=== PATIENT | female | born 1970 | race Caucasian/White ===

== ENCOUNTER 2016-09-25 17:34 | Observation (INO) | payer OTHER ==
[~2016-09-25] VITALS: Ht 162.6 cm; Wt 77.0 kg
[~2016-09-25 17:34] MED LIST: ADVIL,NUPRIN,M200 MG PO; ANTIVERT25 MG PO; BENTYL20 MG PO; CIPRO500 MG PO; CITRATE OF MAG296 ML PO; FLEXERIL10 MG PO; KEFLEX500 MG PO; MOBIC7.5 MG PO; NORCO 5/3251 TABLET PO; PHENERGAN25 MG PR; PRILOSEC20 MG PO; PROMETHAZINE HC25 M1 PO; REGLAN10 MG PO; ZANTAC300 MG PO
[2016-09-25 18:34] LABS: HEMATOCRIT 43.7 % (36.0-46.0); MCH 33.3 PG (29.0-34.0); MCHC 35.5 G/DL (30.0-36.0); MCV 93.8 FL (83-99); MEAN PLAT.VOLUME 11.3 uM^3 (9.5-12.4); PLATELET COUNT 193 K/uL (156-360); RBC DIS.WIDTH-CV 12.2 % (11.8-14.6); RED BLOOD COUNT 4.66 M/uL (3.80-5.20); WHITE BLOOD COUNT 11.7 K/uL (4.1-10.2)
[2016-09-25 18:40] LABS: EOSINOPHIL (%) 0 % (0-5); IMMATURE GRANULOCYTE (%) 0.3 % (0.0-0.7); LYMPHOCYTE COUNT 0.8 K/uL (1.0-2.8); MONOCYTE (%) 4.4 % (3-12); MONOCYTE COUNT 0.5 K/uL (0-0.8); NEUTROPHIL (%) 88.7 % (45-76); NEUTROPHIL COUNT 10.4 K/uL (1.8-6.4)
[2016-09-25 18:49] LABS: TROP-I INTERPRETATION NEGATIVE; TROPONIN-I < 0.01 ng/mL (0.0-0.30)
[2016-09-25 18:50] LABS: CHLORIDE 108 mEq/L (99-109); POTASSIUM 3.6 mEq/L (3.7-5.4); SODIUM 139 mEq/L (136-147)
[2016-09-25 18:52] LABS: GLUCOSE 142 mg/dL (70-99)
[2016-09-25 18:53] LABS: ANION GAP 12 MEQ/L (2-14)
[2016-09-25 18:54] LABS: TOTAL BILIRUBIN 0.9 mg/dL (0.0-1.0)
[2016-09-25 18:56] LABS: ALKALINE PHOSPHATASE 96 IU/L (3-129); GFR ESTIMATE (CALCULATED) > 59 mL/min/
[2016-09-25 18:57] LABS: UREA NITROGEN (BUN) 17 mg/dL (9-23)
[2016-09-25 18:59] LABS: LIPASE 20 U/L (1.0-51.0)
[2016-09-26 01:30] VITALS: BP 136/62
[2016-09-26 04:53] VITALS: BP 132/71
[2016-09-26 05:20] LABS: ADD MIUA? YES; BILIRUBIN NEGATIVE; BLOOD TRACE; COLOR YELLOW ((YELLOW)); GLUCOSE (STRIP) 100; KETONES 15; LEUKOCYTES NEGATIVE; NITRITE NEGATIVE; PROTEIN (STRIP) TRACE; SPECIFIC GRAVITY 1.031 (1.000-1.030)
[2016-09-26 05:35] LABS: RED BLOOD CELLS 0-5 /HPF (0-5); WHITE BLOOD CELLS 0-5 /HPF (0-5)
[2016-09-26 05:36] LABS: BACTERIA 2+ /HPF; CASTS NONE SEEN /LPF; CRYSTALS NONE SEEN; EPITHELIAL CELLS 2+ /HPF; MUCUS NONE SEEN /LPF
[2016-09-26 06:53] LABS: HEMATOCRIT 40.9 % (36.0-46.0); MCH 32.9 PG (29.0-34.0); MCHC 34.7 G/DL (30.0-36.0); MCV 94.7 FL (83-99); MEAN PLAT.VOLUME 11.2 uM^3 (9.5-12.4); PLATELET COUNT 169 K/uL (156-360); RBC DIS.WIDTH-CV 12.3 % (11.8-14.6); RBC DIS.WIDTH-SD 42.4 % (39-53); RED BLOOD COUNT 4.32 M/uL (3.80-5.20); WHITE BLOOD COUNT 7.2 K/uL (4.1-10.2)
[2016-09-26 07:05] LABS: ALKALINE PHOSPHATASE 75 IU/L (3-129); ANION GAP 9 MEQ/L (2-14); CHLORIDE 106 MEQ/L (99-109); GFR ESTIMATE (CALCULATED) > 59 mL/min/; GLUCOSE 130 mg/dL (70-99); POTASSIUM 3.4 MEQ/L (3.7-5.4); SAMPLE HEMOLYSIS CHECK 0; SAMPLE ICTERIC CHECK 0; SAMPLE LIPEMIA CHECK 0; SODIUM 136 MEQ/L (136-147); TOTAL BILIRUBIN 0.5 MG/DL (0.0-1.0); UREA NITROGEN (BUN) 9 mg/dL (9-23)
[2016-09-26 07:26] LABS: Estimated Average Glucose 103 mg/dL (70-123); HEMOGLOBIN A1c (GLYCOHEMOGLOB) 5.2 % HGB (Below 5.7)
[2016-09-26 08:38] VITALS: BP 116/65
[2016-09-26 12:01] VITALS: BP 126/65
[2016-09-26] MEDS ORDERED: NICODERM CQ1 EAC2 TD (14:03)
[2016-09-26] MEDS ORDERED: PHENERGAN25 MG PR (14:03)
[2016-09-27] MEDS ORDERED: ALPRAZOLAM0.5 MG PO (23:34)
[2016-09-27] MEDS ORDERED: HYDROXYZINE HCL50 MG PO (23:36)
== END 2016-09-26 15:23 | disposition home or self-care (01) ==
LOC: EME 17:34 → EDOF 23:56 → 5WEST 09-26 01:15
PROVIDERS: Emergency Medicine; Internal Medicine
DX: R11.2 Nausea with vomiting, unspecified (principal); R91.8 Other nonspecific abnormal finding of lung field; R93.8 Abnormal findings on diagnostic imaging of other specified body structures; E87.6 Hypokalemia; R73.9 Hyperglycemia, unspecified; K21.9 Gastro-esophageal reflux disease without esophagitis; R19.7 Diarrhea, unspecified; F17.200 Nicotine dependence, unspecified, uncomplicated; Z82.49 Family history of ischemic heart disease and other diseases of the circulatory system; Z91.09 Other allergy status, other than to drugs and biological substances
CPT/HCPCS: 74177; 80053; 81003; 82272; 83036; 83630; 83690; 84484; 85025; 85027; 87177; 87493; 99281; 99285; G0378; J0360; J1644; J2270; J2405; J2765; J3480; J7030; S0028

== ENCOUNTER 2016-09-27 23:13 | Observation (INO) | payer OTHER ==
[~2016-09-27] VITALS: Ht 162.6 cm; Wt 78.0 kg
[~2016-09-27 23:13] MED LIST changes: +NICODERM CQ1 EAC2 TD
[2016-09-27] MEDS ORDERED: ALPRAZOLAM0.5 MG PO (23:34)
[2016-09-27] MEDS ORDERED: HYDROXYZINE HCL50 MG PO (23:36)
[2016-09-28] LABS: CHLORIDE 103 mEq/L (99-109); POTASSIUM 2.8 mEq/L (3.7-5.4); SODIUM 139 mEq/L (136-147)
[2016-09-28 00:03] LABS: ANION GAP 16 MEQ/L (2-14)
[2016-09-28 00:04] LABS: HEMATOCRIT 43.3 % (36.0-46.0); MCH 32.1 PG (29.0-34.0); MCHC 35.3 G/DL (30.0-36.0); MEAN PLAT.VOLUME 10.5 uM^3 (9.5-12.4); PLATELET COUNT 213 K/uL (156-360); RBC DIS.WIDTH-CV 11.6 % (11.8-14.6); RBC DIS.WIDTH-SD 38.4 % (39-53); RED BLOOD COUNT 4.76 M/uL (3.80-5.20); WHITE BLOOD COUNT 10.3 K/uL (4.1-10.2)
[2016-09-28 00:05] LABS: SERUM ETHYL ALCOHOL < 10 mg/dL
[2016-09-28 00:06] LABS: ALKALINE PHOSPHATASE 98 IU/L (3-129); GFR ESTIMATE (CALCULATED) > 59 mL/min/
[2016-09-28 00:07] LABS: UREA NITROGEN (BUN) 11 mg/dL (9-23)
[2016-09-28 00:09] LABS: LIPASE 29 U/L (1.0-51.0)
[2016-09-28 00:12] LABS: TROP-I INTERPRETATION NEGATIVE; TROPONIN-I < 0.01 ng/mL (0.0-0.30)
[2016-09-28 00:15] LABS: QUANTITATIVE HCG < 4.0 MIU/ML
[2016-09-28 00:26] LABS: GLUCOSE 93 mg/dL (70-99); TOTAL BILIRUBIN 0.7 mg/dL (0.0-1.0)
[2016-09-28] MEDS ORDERED: PROMETHAZINE HC25 M1 PO (01:34)
[2016-09-28] MEDS ORDERED: HYDROXYZINE HCL50 MG PO (01:34)
[2016-09-28 05:00] VITALS: BP 178/90
[2016-09-28 07:52] LABS: ANION GAP 11 MEQ/L (2-14); CHLORIDE 106 MEQ/L (99-109); GFR ESTIMATE (CALCULATED) > 59 mL/min/; GLUCOSE 91 mg/dL (70-99); SAMPLE HEMOLYSIS CHECK 0; SAMPLE ICTERIC CHECK 0; SAMPLE LIPEMIA CHECK 0; SODIUM 139 MEQ/L (136-147); TROP-I INTERPRETATION NEGATIVE; TROPONIN-I < 0.01 ng/mL (0.0-0.30); UREA NITROGEN (BUN) 7 mg/dL (9-23)
[2016-09-28 07:58] LABS: POTASSIUM 3.6 MEQ/L (3.7-5.4)
[2016-09-28 08:47] VITALS: BP 140/73
[2016-09-28 10:19] LABS: MAGNESIUM 1.5 mg/dl (1.3-2.7)
[2016-09-28 11:31] VITALS: BP 122/68
[2016-09-28 15:09] LABS: TROP-I INTERPRETATION NEGATIVE; TROPONIN-I < 0.01 ng/mL (0.0-0.30)
[2016-09-28 15:52] VITALS: BP 169/77
[2016-09-28 20:00] VITALS: BP 166/86
[2016-09-29] VITALS: BP 152/77
[2016-09-29 03:33] VITALS: BP 136/90
[2016-09-29] MEDS ORDERED: PROTONIX40 MG PO (08:01)
[2016-09-29 08:20] VITALS: BP 136/64
== END 2016-09-29 12:12 | disposition home or self-care (01) ==
LOC: EME 23:13 → EDOF 09-28 02:29 → 5WEST 09-28 02:29 → EDOF 09-28 02:29 → 5WEST 09-28 03:18
PROVIDERS: Emergency Medicine; Family Medicine
DX: R10.13 Epigastric pain (principal); R11.2 Nausea with vomiting, unspecified; E87.6 Hypokalemia; K20.9 Esophagitis, unspecified; K29.70 Gastritis, unspecified, without bleeding; K25.9 Gastric ulcer, unspecified as acute or chronic, without hemorrhage or perforation; K21.9 Gastro-esophageal reflux disease without esophagitis; R91.8 Other nonspecific abnormal finding of lung field; F41.8 Other specified anxiety disorders; F17.200 Nicotine dependence, unspecified, uncomplicated; Z82.49 Family history of ischemic heart disease and other diseases of the circulatory system; Z83.3 Family history of diabetes mellitus; Z91.09 Other allergy status, other than to drugs and biological substances
CPT/HCPCS: 71010; 71275; 76705; 80048; 80048 91; 80053; 81003; 83690; 83735; 84484; 84702; 85027; 88305; 88342 TC; 93005; 99281; 99285; B4087; C9113; G0378; G0480; J1170; J1644; J1885; J2060; J2250; J2270; J2405; J3475; J3480; J7030; S0028

== ENCOUNTER 2017-02-22 06:13 | Observation (INO) | payer OTHER ==
[~2017-02-22] VITALS: Ht 162.6 cm; Wt 68.0 kg
[~2017-02-22 06:13] MED LIST changes: +ALPRAZOLAM0.5 MG PO; +HYDROXYZINE HCL50 MG PO; +PROTONIX40 MG PO
[2017-02-22 07:26] LABS: HEMATOCRIT 45.8 % (36.0-46.0); MCHC 34.3 G/DL (30.0-36.0); MCV 93.5 FL (83-99); MEAN PLAT.VOLUME 10.4 uM^3 (9.5-12.4); PLATELET COUNT 259 K/uL (156-360); RBC DIS.WIDTH-CV 11.9 % (11.8-14.6); RBC DIS.WIDTH-SD 40.9 % (39-53); WHITE BLOOD COUNT 9.7 K/uL (4.1-10.2)
[2017-02-22 07:58] LABS: ALKALINE PHOSPHATASE 89 IU/L (3-129); ANION GAP 11 MEQ/L (2-14); CHLORIDE 105 MEQ/L (99-109); GFR ESTIMATE (CALCULATED) > 59 mL/min/; GLUCOSE 163 mg/dL (70-99); LIPASE 20 U/L (1.0-51.0); POTASSIUM 3.6 MEQ/L (3.7-5.4); SAMPLE HEMOLYSIS CHECK 0; SAMPLE ICTERIC CHECK 0; SAMPLE LIPEMIA CHECK 0; SODIUM 136 MEQ/L (136-147); TOTAL BILIRUBIN 1.1 MG/DL (0.0-1.0); UREA NITROGEN (BUN) 10 mg/dL (9-23)
[2017-02-22 07:59] LABS: QUANTITATIVE HCG < 4.0 MIU/ML
[2017-02-22 09:51] LABS: TROP-I INTERPRETATION NEGATIVE; TROPONIN-I 0.01 ng/mL (0.0-0.30)
[2017-02-22] MEDS ORDERED: XANAX0.5 MG PO (14:47)
[2017-02-22] MEDS ORDERED: ERGOCALCIF50000 UNIT PO (14:48)
[2017-02-22] MEDS ORDERED: BUPROPION HCL150 M2 PO (14:48)
[2017-02-22] MEDS ORDERED: LISINOPRIL10 MG PO (14:48)
[2017-02-22] MEDS ORDERED: PANTOPRAZOLE SO40 MG PO (14:48)
[2017-02-22] MEDS ORDERED: PROBIOTIC1 EAC1 PO (14:49)
[2017-02-22 16:37] LABS: TROP-I INTERPRETATION NEGATIVE; TROPONIN-I < 0.01 ng/mL (0.0-0.30)
[2017-02-22 16:42] VITALS: BP 128/65
[2017-02-22 18:44] VITALS: BP 190/89
[2017-02-22 22:30] LABS: TROP-I INTERPRETATION NEGATIVE; TROPONIN-I < 0.01 ng/mL (0.0-0.30)
[2017-02-23] VITALS (8 sets, daily range): BP systolic 117–198; BP diastolic 58–95
[2017-02-23 10:26] LABS: ANION GAP 9 MEQ/L (2-14); CHLORIDE 102 MEQ/L (99-109); POTASSIUM 3.4 MEQ/L (3.7-5.4); SAMPLE HEMOLYSIS CHECK 0; SAMPLE ICTERIC CHECK 0; SAMPLE LIPEMIA CHECK 0; SODIUM 137 MEQ/L (136-147)
[2017-02-23 10:31] LABS: GFR ESTIMATE (CALCULATED) > 59 mL/min/; UREA NITROGEN (BUN) 7 mg/dL (9-23)
[2017-02-23 10:33] LABS: GLUCOSE 103 mg/dL (70-99)
[2017-02-24 04:00] VITALS: BP 156/79
[2017-02-24 08:16] VITALS: BP 126/72
[2017-02-24 09:27] LABS: ANION GAP 6 MEQ/L (2-14); CHLORIDE 101 MEQ/L (99-109); POTASSIUM 3.5 MEQ/L (3.7-5.4); SAMPLE HEMOLYSIS CHECK 0; SAMPLE ICTERIC CHECK 0; SAMPLE LIPEMIA CHECK 0; SODIUM 133 MEQ/L (136-147)
[2017-02-24 09:33] LABS: GFR ESTIMATE (CALCULATED) > 59 mL/min/; GLUCOSE 90 mg/dL (70-99); UREA NITROGEN (BUN) 10 mg/dL (9-23)
[2017-02-24 12:09] VITALS: BP 149/92
[2017-02-24] MEDS ORDERED: ONDANSETRON ODT4 MG PO (12:59)
[2017-02-24] MEDS ORDERED: BENTYL20 MG PO (12:59)
== END 2017-02-24 14:55 | disposition home or self-care (01) ==
LOC: EME 06:13 → EDOF 14:02 → 5WEST 14:02 → EDOF 14:02 → 5WEST 15:55
PROVIDERS: Emergency Medicine; Internal Medicine; Nurse Practitioner Adult Health; Student in an Organized Health Care Education/Training Program
DX: R07.9 Chest pain, unspecified (principal); R10.13 Epigastric pain; K21.9 Gastro-esophageal reflux disease without esophagitis; F41.9 Anxiety disorder, unspecified; Z72.0 Tobacco use; F32.9 Major depressive disorder, single episode, unspecified; R11.2 Nausea with vomiting, unspecified; Z82.49 Family history of ischemic heart disease and other diseases of the circulatory system; I10 Essential (primary) hypertension; N83.201 Unspecified ovarian cyst, right side; D25.9 Leiomyoma of uterus, unspecified; N28.1 Cyst of kidney, acquired
CPT/HCPCS: 74177; 80048; 80053; 83690; 84484; 84702; 85027; 93005; 99281; 99284; C9113; G0378; J0360; J1200; J1885; J2060; J2270; J2405; J2765; J3480; J7030; Q0177